=== PATIENT | male | born 1995 | race Caucasian/White ===

== ENCOUNTER 2017-03-28 08:56 | Emergency (ER) | payer OTHER ==
--- NOTE | 2017-03-28 09:06 | EDPHY ---
H & P Stated Complaint: neck swelling, sore throat, chills Source: Patient Exam Limitations: No limitations - Personal History Current Tetanus/Diphtheria Vaccine: Unsure Current Tetanus Diphtheria and Acellular Pertussis (TDAP): Unsure - Medical/Surgical History Hx Asthma: No Hx Chronic Respiratory Disease: No Hx Diabetes: No Hx Cardiac Disease: No Hx Renal Disease: No Hx Cirrhosis: No Hx Alcoholism: No Hx HIV/AIDS: No Hx Splenectomy or Spleen Trauma: No Other PMH: denies - Social History Smoking Status: Never smoked Time Seen by Provider: 03/28/17 09:06 HPI/ROS: HPI: This is a 22-year-old male presents with Chief Complaint: neck swelling, sore throat, chills Location: Neck Quality: Swelling Duration: 2 days Signs and Symptoms: + fever, + chills, no drooling, no trismus, + pain with swallowing, + toothache, no neck stiffness, no headache Timing: Gradual onset Severity: Moderate Context: Patient complains of sore throat and bottom right tooth cavity for the last 3 days accompanied by fever, chills. Last dose of antipyretic was yesterday. Over the last 2 days he has noticed right greater than left; jaw swelling as well as swollen glands. He is drinking fluids but notes discomfort with swallowing. Denies drooling/difficulty speaking. He made an appointment to see a dentist which is next week. Modifying Factors: Antipyretics Comment: ROS: see HPI Constitutional: No fever, no chills, no weight loss Eyes: No blurred vision Respiratory: No shortness of breath, no cough Cardiovascular: No chest pain Gastrointestinal: No nausea, no vomiting, no diarrhea Genitourinary: No dysuria Extremities: No myalgias Neurologic: No weakness, no numbness Skin: No rashes Hematologic: No bruising, no bleeding MEDICAL/SURGICAL/SOCIAL HISTORY: Medical history: Generally healthy Surgical history: Denies Social history: Employed CONSTITUTIONAL: Young adult white male, awake and alert, no obvious distress HEENT: Atraumatic and normocephalic, PERRL, EOMI. Tympanic membranes clear. Bottom right tooth # 27; mild blackening in the pulled; no crack; no gingival erythema. Posterior pharynx white exudate, right tonsil 1+ moderate erythema, left tonsil 2+ moderate erythema, uvula midline, halitosis and moist pink mucosa. Airway patent. Moderate anterior bilateral cervical lymphadenopathy. No meningismus. Cardiovascular: Normal S1/S2, tachycardia, regular rhythm, without murmur rub or gallop. PULMONARY/CHEST: Symmetrical and nontender. Clear to auscultation bilaterally. Good air movement. No accessory muscle usage. ABDOMEN: Soft, nondistended, nontender, no rebound, no guarding, no peritoneal signs, no masses or organomegaly. No CVAT. EXTREMITIES: 2/2 pulses, no deformities, no clubbing, no cyanosis or edema. NEUROLOGICAL: no focal neuro deficits. GCS 15. Speech clear. SKIN: Warm and dry, no erythema. no rash. Good capillary refill. (Waleska Hernandez) Constitutional: Initial Vital Signs Temperature (C) 38.5 C H 03/28/17 08:59 Heart Rate 104 H 03/28/17 08:59 Respiratory Rate 18 03/28/17 08:59 Blood Pressure 128/82 H 03/28/17 08:59 O2 Sat (%) 96 03/28/17 08:59 O2 Delivery Mode Room Air Allergies/Adverse Reactions: No Known Allergies Allergy (Unverified 03/28/17 09:02) Home Medications: Medication Instructions Recorded Amoxicillin/Clavulanate Pot 875 mg PO BID #14 tab 03/28/17 [Augmentin 875 MG TAB (*)] Medical Decision Making ED Course/Re-evaluation: Labs, strep, IV fluids, IV medications, CT maxillofacial scan ordered Febrile; SIRS signs meant Given 1 L normal saline, IV Toradol, IV Decadron and p.o. viscous lidocaine No signs of tonsillar abscess/airway compromise CT maxillofacial scan with contrast ordered to evaluate abscess Labs reviewed and show mild leukocytosis; no acute kidney injury/electrolyte imbalance. Strep is negative 1025: Reassessed patient who reports, moderate relief of sore throat and overall feeling 50% better. 1100: Called by radiologist who advised no abscess, reactive nodes right greater than left, right frontal opacification. Will treat with antibiotics due to lymphadenitis and dental cavity. Rx Augmentin given to cover oral/nasal pathogens (Waleska Hernandez) Differential Diagnosis: Differential diagnosis includes strep pharyngitis, cervical lymphadenitis, periapical abscess, viral syndrome, mononucleosis. (Waleska Hernandez) Other Provider: The patient was evaluated and managed by the Physician [facility] Supervisor. My co- signature indicates that I have reviewed this chart and I agree with the findings and plan of care as documented. I am the secondary supervising physician. (Desire Pierre) - Data Points Laboratory Results: Laboratory Results 03/28/17 09:15 03/28/17 09:15 Medications Given: Discontinued Medications Dexamethasone (Decadron Injection) 10 mg IVP EDNOW ONE Stop: 03/28/17 09:12 Last Admin: 03/28/17 09:31 Dose: 10 mg Sodium Chloride (Ns) 1,000 mls @ 0 mls/hr IV EDNOW ONE; Wide Open PRN Reason: Protocol Stop: 03/28/17 09:12 Last Admin: 03/28/17 09:28 Dose: 1,000 mls Ketorolac Tromethamine (Toradol) 30 mg IVP EDNOW ONE Stop: 03/28/17 09:12 Last Admin: 03/28/17 09:31 Dose: 30 mg Lidocaine (Lidocaine 2% Viscous) 5 ml PO EDNOW ONE Stop: 03/28/17 09:12 Last Admin: 03/28/17 09:34 Dose: 15 ml Departure - Departure Disposition: Home, Routine, Self-Care Clinical Impression: Dental cavity, Pharyngitis, Cervical lymphadenitis Condition: Good Instructions: Dental Caries (ED), Adenitis (ED) Additional Instructions: Please take all antibiotics as indicated until complete. Follow up with your dentist as previously scheduled. Take Tylenol and/or ibuprofen as needed for pain and inflammation. Perform salt water gargle several times per day to decrease throat soreness. Prevent dehydration and drink plenty of fluids daily. Strep test was negative today. CT maxillofacial scan did not show any abscess formation. Referrals: NONE *PRIMARY CARE P,. [Primary Care Provider] - As per Instructions [facility],. [Clinic] - As per Instructions Prescriptions: Amoxicillin/Clavulanate Pot [Augmentin 875 MG TAB (*)] 875 mg PO BID #14 tab
[2017-03-28] MEDS ORDERED: NS 1,000 ML IV ONE (09:11)
[2017-03-28] MEDS ORDERED: LIDOCAINE 2% VISCOUS 15 ML UDCUP PO ONE (09:11)
[2017-03-28] MEDS ORDERED: DEXAMETHASONE 10 MG/ML VIAL IVP ONE (09:11)
[2017-03-28] MEDS ORDERED: KETOROLAC 30 MG/1 ML SDV IVP ONE (09:11)
[2017-03-28 09:26] LABS: % IMMATURE GRANULYOCYTES 0.3 % (0.0-1.1); ABSOLUTE IMMATURE GRANULOCYTES 0.04 10^3/uL (0.00-0.10); ADD DIFF? NO; ADD MORPH? NO; ADD SCAN? NO; ATYPICAL LYMPHOCYTE FLAG 0 (0-99); FRAGMENT RBC FLAG 0 (0-99); HEMOGLOBIN 16.3 g/dL (13.7-17.5); LEFT SHIFT FLG 0 (0-99); LIPEMIA HEMOLYSIS FLAG 90 (0-99); MEAN CELL HEMOGLOBIN CONCENTR. 35.4 g/dL (32.4-36.7); MEAN CELL VOLUME 87.5 fL (81.5-99.8); PLATELET CLUMPS FLAG 0 (0-99); PLATELET COUNT 214 10^3/uL (150-400); RED BLOOD CELL COUNT 5.26 10^6/uL (4.40-6.38); RED CELL DISTRIBUTION WIDTH 12.1 % (11.5-15.2)
[2017-03-28 09:45] LABS: ANION GAP 15 mEq/L (8-16); CALCIUM 9.8 mg/dL (8.5-10.4); CARBON DIOXIDE 24 mEq/l (22-31); CHLORIDE 102 mEq/L (97-110); CREATININE 0.9 mg/dL (0.7-1.3); GLOMERULAR FILTRATION RATE > 60; GLUCOSE 90 mg/dL (70-100); POTASSIUM 3.9 mEq/L (3.5-5.2); SODIUM 141 mEq/L (134-144)
[2017-03-28] MEDS ORDERED: IOPAMIDOL (ISOVUE-300) 100 ML BTL ONE (09:57)
[2017-03-28 11:03] VITALS: BP 136/78; PULSE 80; RESP 16; TEMP 98.8; O2SAT 95
== END 2017-03-28 11:26 | disposition home or self-care (01) ==
PROC: 3E0337Z Introduction of Electrolytic and Water Balance Substance into Peripheral Vein, Percutaneous Approach (ICD-10-PCS; principal; 2017-03-28)
DX: J02.9 Acute pharyngitis, unspecified (principal); K02.9 Dental caries, unspecified; I88.9 Nonspecific lymphadenitis, unspecified; E86.9 Volume depletion, unspecified
CPT/HCPCS: 96374; J1100; J1885; Q9967

== ENCOUNTER 2017-09-11 09:39 | Emergency (ER) | payer OTHER ==
--- NOTE | 2017-09-11 10:05 | CPEKG ---
Heart Rate: 62 RR Interval: 968 P-R Interval: 136 QRSD Interval: 86 QT Interval: 424 QTC Interval: 431 P [place]: 68 QRS [place]: -24 T Wave [place]: 39 EKG Severity - OTHERWISE NORMAL ECG - EKG Impression: SINUS RHYTHM EKG Impression: BORDERLINE LEFT AXIS DEVIATION Electronically Signed By: Watson Craft 11-Sep-2017 15:07:04
[2017-09-11 10:32] LABS: PLATELET COUNT 302 10^3/uL (150-400)
--- NOTE | 2017-09-11 10:52 | EDPHY ---
H & P Stated Complaint: Midsternal Cp episodes x 2 days-from urgent care Time Seen by Provider: 09/11/17 09:47 HPI/ROS: CHIEF COMPLAINT: Chest pain HISTORY OF PRESENT ILLNESS: The patient presents to the ED with a 2 day history of chest pain. The patient reports he is notice some chest discomfort primarily in the morning. He reports the symptoms have been improving throughout the day over a 2-3 hour. The patient did go on a run yesterday and did have some mild recurrent discomfort. He reportedly then went rock climbing without any symptoms of chest pain. The patient has no prior history of chest pain. He has no significant past medical history. The patient did have a sore throat approximately 1 week ago and felt he may have had strep pharyngitis. He did not take antibiotics for that condition. The patient is currently chest pain-free. REVIEW OF SYSTEMS: A comprehensive 10 point review of systems is otherwise negative aside from elements mentioned in the history of present illness. Source: Patient Exam Limitations: No limitations - Medical/Surgical History Hx Asthma: No Hx Chronic Respiratory Disease: No Hx Diabetes: No Hx Cardiac Disease: No Hx Renal Disease: No Hx Cirrhosis: No Hx Alcoholism: No Hx HIV/AIDS: No Hx Splenectomy or Spleen Trauma: No Other PMH: denies - Social History Smoking Status: Current some day smoker - Physical Exam Exam: General Appearance: Alert, no distress Eyes: Pupils equal and round no pallor or injection ENT, Mouth: Mucous membranes moist Respiratory: There are no retractions, lungs are clear to auscultation Cardiovascular: Regular rate and rhythm Gastrointestinal: Abdomen is soft and nontender, no masses, bowel sounds normal Neurological: A&O, normal motor function, normal sensory exam, normal cranial nerves Skin: Warm and dry, no rashes Musculoskeletal: Neck is supple nontender Extremities: symmetrical, full range of motion Constitutional: Initial Vital Signs Temperature (C) 37.0 C 09/11/17 09:43 Heart Rate 68 09/11/17 09:43 Respiratory Rate 16 09/11/17 09:43 Blood Pressure 104/83 H 09/11/17 09:43 O2 Sat (%) 97 09/11/17 09:43 O2 Delivery Mode Room Air Allergies/Adverse Reactions: No Known Allergies Allergy (Unverified 03/28/17 09:02) Home Medications: Medication Instructions Recorded NK [No Known Home Meds] 09/11/17 Medical Decision Making - Diagnostics EKG Interpretation: EKG: Complete interpretation has been separately recorded in the [facility] archive. Summary impression: Sinus rhythm, rate 62, mild diffuse ST segment elevation consistent with pericarditis Imaging Results: Imaging Impressions Chest X-Ray 09/11/17 10:12 Impression: Suspect airways disease. Otherwise normal. Chest/Thorax CTA 09/11/17 12:37 Impression: Normal exam. Findings were discussed with Watson Craft MD at 13:16, on 09/11/2017. ED Course/Re-evaluation: The patient presents to the ED with a 2 day history of atypical chest pain. The patient is currently chest pain-free. He reports his symptoms are typically worsened when lying flat and improved once he is upright. The patient 's EKG does suggest pericarditis. He does have an elevated troponin of 2.3 suggesting myocarditis. An echocardiogram was ordered at 11:00 a.m. There was reviewed with Dr. Connolly who informs me is normal. I reviewed the patient's EKG and laboratory studies. The patient presents to the ED with 2 days of nonexertional chest pain. He did have a recent upper respiratory infection. The patient has a normal CT angiogram without evidence of dissection. The patient was seen in consultation by Dr. Omi Connolly from Cardiology. At this point time his chest pain is felt to be mostly musculoskeletal in nature. The patient will be advised to take ibuprofen as needed for pain. He will follow up as an outpatient with Cardiology for a repeat troponin echocardiogram. The patient is discharged home with instructions to return to the ED for any worsening symptoms or other concerns. Differential Diagnosis: Differential diagnosis considered includes pericarditis, myocarditis, myocardial infarction, pneumothorax - Data Points Laboratory Results: Laboratory Results 09/11/17 10:20 09/11/17 10:20 09/11/17 09/11/17 10:20 10:20 WBC 4.57 10^3/uL 10^3/uL (3.80-9.50) RBC 5.36 10^6/uL 10^6/uL (4.40-6.38) Hgb 16.8 g/dL g/dL (13.7-17.5) Hct 47.2 % % (40.0-51.0) MCV 88.1 fL fL (81.5-99.8) MCH 31.3 pg pg (27.9-34.1) MCHC 35.6 g/dL g/dL (32.4-36.7) RDW 12.2 % % (11.5-15.2) Plt Count 302 10^3/uL 10^3/uL (150-400) MPV 9.6 fL fL (8.7-11.7) Neut % (Auto) 46.8 % % (39.3-74.2) Lymph % (Auto) 34.4 % % (15.0-45.0) [place] % (Auto) 13.8 % H % (4.5-13.0) Eos % (Auto) 3.7 % % (0.6-7.6) Baso % (Auto) 0.9 % % (0.3-1.7) Nucleat RBC Rel Count 0.0 % % (0.0-0.2) Absolute Neuts (auto) 2.14 10^3/uL 10^3/uL (1.70-6.50) Absolute Lymphs (auto) 1.57 10^3/uL 10^3/uL (1.00-3.00) Absolute Monos (auto) 0.63 10^3/uL 10^3/uL (0.30-0.80) Absolute Eos (auto) 0.17 10^3/uL 10^3/uL (0.03-0.40) Absolute Basos (auto) 0.04 10^3/uL 10^3/uL (0.02-0.10) Absolute Nucleated RBC 0.00 10^3/uL 10^3/uL (0-0.01) Immature Gran % 0.4 % % (0.0-1.1) Immature Gran # 0.02 10^3/uL 10^3/uL (0.00-0.10) Sodium 143 mEq/L mEq/L (135-145) Potassium 4.6 mEq/L mEq/L (3.5-5.2) Chloride 104 mEq/L mEq/L (97-110) Carbon Dioxide 27 mEq/l mEq/l (22-31) Anion Gap 12 mEq/L mEq/L (8-16) BUN 10 mg/dL mg/dL (7-23) Creatinine 0.8 mg/dL mg/dL (0.7-1.3) Estimated GFR > 60 Glucose 91 mg/dL mg/dL (70-100) Calcium 9.6 mg/dL mg/dL (8.5-10.4) Troponin I 2.330 ng/mL H ng/mL (0.000-0.034) Departure - Departure Disposition: Home, Routine, Self-Care Clinical Impression: Chest wall pain Condition: Good Instructions: Chest Pain (ED) Additional Instructions: 1. Stretching as directed by Dr. Omi Connolly. 2. Take Ibuprofen or Motrin 600 mg by mouth three times a day. 3. Please follow-up with Dr. Omi Connolly for any ongoing symptoms. Return to the ED for markedly worsening symptoms. Referrals: Omi Connolly MD [Medical Doctor] - As per Instructions
--- NOTE | 2017-09-11 11:59 | ECHO ---
[email or web address] [address] Main: [phone] Fax: Transthoracic Echocardiogram Name: BRYANNA DAVILA MR#: [id number] Study Date: 09/11/2017 Study Time: 11:21 AM Date of : 1995 Age: 22 year(s) Height: 182.9 cm (72 in.) Weight: 79.38 kg (175 lb.) BSA: 2.01 m2 Gender: Male Examination: Echo Indication: Chest Pain Image Quality: Adequate Contrast: Requested by: Watson Craft BP: 126 mmHg/61 mmHg Heart Rate: Rhythm: Normal sinus rhythm Indication: Chest Pain Procedure Staff Traffic Survey Technician: Savanah Sanford RDCS Reading Physician: Omi Connolly MD Requesting Provider: Conclusions: Normal study Measurements: Chambers Valvular Assessment AV/MV Valvular Assessment TV/PV Normal Normal Normal Name Value Range Name Value Range Name Value Range Ao Sharmaine (MM): 2.8 cm (2.2 cm-3.7 AV Vmax: 1.25 m/s (1 m/s-1.7 PV Vmax: 0.93 m/s (0.6 m/s-0.9 cm) m/s) m/s) IVSd (2D): 0.9 cm (0.6 cm-1.1 AV maxP mmHg ( - ) PV PGmax: 3 mmHg ( - ) cm) LVOT Vmax: 1.00 m/s (0.7 m/s-1.1 LVDd (2D): 5.2 cm (4.2 cm-5.9 m/s) cm) MV E Vmax: 0.50 m/s ( - ) LVDs (2D): 3.9 cm (2.1 cm-4 MV A Vmax: 0.32 m/s ( - ) cm) MV E/A: 1.56 ( - ) LVPWd (2D): 1.0 cm (0.6 cm-1 cm) LVEF (BP): 58 % (>=55 %) RVDd(2D): 3.4 cm (1.9 cm-3.8 cmmm) Continued Measurements: Chambers Valvular Assessment AV/MV Name Value Name Value LADs: 3.2 cm MV DecTime: 285 m/s LADs Lon.8 cm MV E/E' Septal: 4.40 LA Area: 16.0 cm2 MV E/E' Lateral: 3.80 LA Volume: 48 ml LA Volume Index: 23.9 ml/m2 TAPSE: 1.9 cm Patient: BRYANNA DAVILA Study Date: 09/11/2017 Page 1 of 2 11:21 AM RA Area: 13.0 cm2 Additional Vessels Name Value Ao Ascendin.5 cm Findings: Left Ventricle: Normal size left ventricle. No LV hypertrophy. Normal global systolic LV function. EF is 58 %. No regional wall motion abnormality. Normal diastolic LV function. Right Ventricle: Normal size right ventricle. Normal RV function. Left Atrium: The left atrium is normal in size. Right Atrium: The right atrium is normal in size. Mitral Valve: The mitral valve is normal in appearance and function. Trivial mitral valve regurgitation. No mitral stenosis is present. Aortic Valve: The aortic valve is tri-leaflet and functions normally. There is no aortic valve regurgitation. No aortic valve stenosis is present. Tricuspid Valve: The tricuspid valve is normal in appearance and function. There is no tricuspid valve regurgitation. Pulmonary artery pressure is not obtained due to inadequate TR jet. Pulmonic Valve: The pulmonic valve is normal in appearance and function. Trivial to mild pulmonic valve regurgitation. Aorta: The aorta is normal. Normal size aortic root measuring 2.8 cm. Normal size ascending aorta measuring 2.5 cm. IVC: The IVC is dilated. Pericardium: No pericardial effusion. (No Signature Object) Patient: BRYANNA DAVILA Study Date: 09/11/2017 Page 2 of 2 11:21 AM [id number]
[2017-09-11] MEDS ORDERED: IOPAMIDOL (ISOVUE 370) 100 ML BTL IV ONE (12:43)
--- NOTE | 2017-09-11 15:05 | GHP ---
[f rep st] HISTORY AND PHYSICAL DATE OF ADMISSION: 09/11/2017 INDICATIONS: Chest pain. HISTORY OF PRESENT ILLNESS: Mr. Piña is a 22-year-old male, previously healthy. No prior cardio vascular history, nonsmoker. No history of hypertension, diabetes. No family history of early heart disease. No history of diabetes, who presents with a several-day history of an unusual chest discom fort. This began upon awakening. It was located in his sternum along the joint. He was able to loc tracy it pretty well. The pain persisted all day and eventually drifted off. He had 2 episodes of t his. He was able to rock climb without limitations. He had maybe some worsening of the discomfort w ith exercise and he decided to go to an outpatient clinic for evaluation. On arrival there his EKG w as felt to be abnormal and he was referred to the emergency department. He was seen by the staff and I am asked to comment. On my arrival, he is pain free. He has had no discomfort over the last 24 h ours. This is not associated with palpitations, syncope, near syncope. There is no radiation of thi s discomfort to the jaw, back or arm. Patient had a viral type illness several days ago associated with sore throat that responded to conse rvative measures. He is a nonsmoker as I mentioned above. He is extraordinarily active without limitations. He has ex perienced no recent trauma. No drug use. In particular, no history of cocaine use. PAST MEDICAL HISTORY: Otherwise unremarkable. PAST SURGICAL HISTORY: Unremarkable. FAMILY HISTORY: Negative for premature coronary artery disease or sudden . MEDICATIONS: None. ALLERGIES: None. REVIEW OF SYSTEMS: Negative for fever, chills, nausea, vomiting, abdominal pain, diarrhea, constipat ion. He has had no dysuria bruising, bleeding, hematemesis, melena, or hemoptysis. Review of system s is positive for some chest discomfort related to musculoskeletal issues. 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 He did have a fracture of his left collarbone. PHYSICAL EXAMINATION: GENERAL: On my arrival, is a well-nourished, well-developed male in no distre . VITAL SIGNS: His blood pressure is 122/63. His current heart rate is 58, respiratory rate is 1 6. He is saturating 98% on room air. His temperature is 37. HEENT: Significant for no xanthelasma , no conjunctival injection. His oropharynx was clear. NECK: No JVP at 90 degrees. He had no morales tid bruits. CHEST: His chest was clear to auscultation and percussion. Palpation of the anterior c hest wall reveals asymmetry of the sternum with some erythema in the area of tenderness. He had tend erness to palpation there. There was no RV lift. He had a regular rate and rhythm. I could not smita reciate a gallop. ABDOMEN: Soft, nontender, with good bowel sounds. He had no organomegaly. EXTRE MITIES: Free of edema. There was no calf tenderness. SKIN: Examination was normal. NEUROLOGIC: He was alert and oriented. He is not anxious. Skin examination reveals no rash. LABORATORY DATA: His echocardiogram showed normal LV function without pericardial effusion and mitch l regional wall motion. He had no valvular abnormalities. His white count is 4.57 with a hemoglobin of 16.8. His hematocrit is 47.2. He had 302,000 platelets. His serum sodium was 143 with a potass ium 4.6, his chloride is 104, bicarbonate 27, his BUN is 10 with a creatinine 0.8. His troponin is e levated at 2.3. He had a CT scan of the chest which revealed a normal ascending and descending thora cic aorta. No significant atheroma was identified. It was a completely normal examination. He had an EKG which showed sinus rhythm and early repolarization without acute ST changes. IMPRESSION: The patient is a 22-year-old male admitted with a several-day history of atypical chest pain. This is associated with a normal EKG, clinical history most consistent with a musculoskeletal etiology. I cannot exclude myopericarditis in the setting of a recent viral illness, though he is we ll today without elevation in white count. RECOMMENDATIONS: Ten days of anti-inflammatory drugs, Advil 400 mg three times daily, with followup with me in 10 days. At that time, we will repeat a limited echo to make sure that LV function is not changing and a repeat metabolic assessment at that time. He is hemodynamically stable without evide nce of other acute emergent chest pain syndrome. Will be happy to follow him up as an outpatient. Thank you for allowing me to participate in his care. /[id number]/MOD
[2017-09-11 15:20] VITALS: BP 130/75; PULSE 66; RESP 15; TEMP 98.8; O2SAT 96
== END 2017-09-11 15:20 | disposition home or self-care (01) ==
DX: R07.89 Other chest pain (principal); F17.200 Nicotine dependence, unspecified, uncomplicated
CPT/HCPCS: Q9967